=== PATIENT | female | born 1960 | race Caucasian/White ===

== ENCOUNTER 2018-09-14 19:14 | Emergency (ER) | payer OTHER ==
[~2018-09-14] VITALS: Ht 170.2 cm; Wt 127.0 kg
[2018-09-14] MEDS ORDERED: ONDANSETRON HCL 4 MG ORAL DISINTEGRATING TAB PO ONE (20:00)
[2018-09-14] MEDS ORDERED: DIAZEPAM 5 MG TAB PO ONE (20:00)
[2018-09-14] MEDS ORDERED: HYDROCODONE/APAP 5MG-325MG TAB PO PRN (20:00)
[2018-09-14] MEDS ORDERED: DIAZEPAM 5 MG TAB ONE (20:03)
[2018-09-14 20:55] LABS: CLARITY,URINE CLEAR (CLEAR); COLOR,URINE YELLOW (YELLOW); KETONES,URINE NEGATIVE (NEGATIVE); LEUKOCYTE ESTERASE ,URINE NEGATIVE (NEGATIVE); NITRITE,URINE NEGATIVE (NEGATIVE); PROTEIN,URINE DIPSTICK NEGATIVE (NEGATIVE); URINE UROBILINOGEN 0.2 mg/dL (0.2 - 1)
[2018-09-14 20:56] LABS: BILIRUBIN,URINE NEGATIVE (NEGATIVE)
[2018-09-14 20:57] LABS: BACTERIA,URINE MODERATE /HPF; EPITHELIAL CELLS,URINE MODERATE /LPF; WBC,URINE (MAN) 0-5 /HPF (0-5)
--- NOTE | 2018-09-14 23:15 | Diagnostic Imaging Report ---
History: Low back pain for one month, associated with numbness in toes for 2 days. Comparison studies: None Technique: Axial images were obtained through the lumbar spine from L1-S1. Coronal and sagittal images reconstructed from the axial data. Dose modulation, iterative reconstruction, and/or weight based adjustment of the mA/kV was utilized to reduce the radiation dose to as low as reasonably achievable. Intravenous contrast: None Findings: The usual 5 non-rib bearing lumbar vertebral bodies are present. Alignment: Normal lordosis. No scoliosis. Soft tissues: No abnormalities. Paraspinal muscles: Fatty atrophy of posterior paraspinal muscles at level L5 and S1. Sacroiliac joints: Degenerative changes in bilateral sacroiliac joints with decreased joint space, subchondral sclerosis and vacuum phenomenon. Vertebrae: Suboptimal evaluation due to beam hardening and photon starvation secondary to patient's body habitus. Despite the limitation, No fractures, infection or neoplasm. Degenerative changes: T12-L1: Posterior disc osteophyte complex results in mild canal stenosis. No significant foraminal stenosis. L1-L2: Disc bulge and bilateral (right worse than left) facet arthrosis results in asymmetric effacement of the thecal sac without significant canal stenosis. Mild left foraminal stenosis. L2-L3: Posterior disc osteophyte complex effaces thecal sac without significant canal stenosis. No foraminal stenosis. L3-L4: Bilateral moderate facet arthrosis. No significant canal or foraminal stenosis. L4-L5: Mild degenerative disc disease with vacuum phenomenon. Disc bulge in combination with thickened ligamentum flavum and bilateral advanced facet arthrosis results in mild canal stenosis. Moderate right and mild left foraminal stenosis. L5-S1: Moderate degenerative disc disease with decreased intervertebral disc space, degenerative endplate changes and vacuum phenomena and. Disc bulge in combination with thickened ligamentum flavum and facet arthrosis results in mild to moderate canal stenosis. Bilateral advanced facet arthrosis. Severe bilateral foraminal stenosis. IMPRESSION: 1. Multilevel lumbar spondylosis, particularly results in mild canal stenosis at T12-L1, L4-L5 and mild to moderate canal stenosis at L5-S1. 2. Multilevel foraminal stenosis, particularly mild left at L1-L2, moderate right and mild left at L4-L5 and severe bilateral at L5-S1. 3. Ligament, spinal cord and or vascular abnormalities cannot be excluded on the basis of this examination. Signed by: Dr. Sofia Crawford M.D. on 09/14/2018 11:11 PM
[2018-09-14 23:25] VITALS: BP 119/66
[2018-09-14] MEDS ORDERED: KETOROLAC TROMETHAMINE 60 MG/2 ML VIAL IM ONE (23:30)
== END 2018-09-14 23:55 | disposition home or self-care (01) ==
LOC: ER 19:14
DX: M54.5 Low back pain (principal); M54.16 Radiculopathy, lumbar region; M51.26 Other intervertebral disc displacement, lumbar region; I10 Essential (primary) hypertension; E11.9 Type 2 diabetes mellitus without complications
CPT/HCPCS: 72131; 81001; 99283; J1885; Q0162

== ENCOUNTER 2018-10-28 14:03 | Outpatient (RCR) | payer OTHER | END 2018-10-31 | LOC: PT 14:03 | PROVIDERS: ATTEND Neurological Surgery | DX: M51.16 Intervertebral disc disorders with radiculopathy, lumbar region (principal); M62.81 Muscle weakness (generalized) ==

== ENCOUNTER 2018-11-29 13:00 | Outpatient (RCR) | payer OTHER | END 2018-12-01 | LOC: PT 13:00 | PROVIDERS: ATTEND Neurological Surgery | DX: M51.16 Intervertebral disc disorders with radiculopathy, lumbar region (principal); M62.81 Muscle weakness (generalized) ==

== ENCOUNTER 2018-12-06 13:02 | Outpatient (RCR) | payer OTHER | END 2019-01-01 | LOC: PT 13:02 | PROVIDERS: ATTEND Neurological Surgery | DX: M51.16 Intervertebral disc disorders with radiculopathy, lumbar region (principal); M62.81 Muscle weakness (generalized) ==